=== PATIENT | female | born 1980 | race Two or more races ===

== ENCOUNTER 2022-12-26 13:52 | Day surgery (SDC) | payer OTHER ==
[~2022-12-26] VITALS: Ht 165.1 cm; Wt 100.2 kg
== END 2022-12-27 03:10 | disposition home or self-care (01) ==
LOC: CIR.AMB 13:52
PROVIDERS: ATTEND Obstetrics & Gynecology Obstetrics
DX: N93.8 Other specified abnormal uterine and vaginal bleeding (principal); Z86.16 Personal history of COVID-19; Z20.822 Contact with and (suspected) exposure to COVID-19